=== PATIENT | male | born 1975 | race African-American/Black ===

== ENCOUNTER 2017-12-24 04:47 | Emergency (ER) | payer OTHER ==
[~2017-12-24] VITALS: Ht 175.3 cm; Wt 96.4 kg
[2017-12-24] MEDS ORDERED: AUGMENTIN 500-1 EACH PO (04:58)
[2017-12-24] MEDS ORDERED: FLONASE ALLERG9.9 ML NS (04:59)
[2017-12-24] MEDS ORDERED: DELTASONE20 M1 PO (05:56)
[2017-12-24 06:18] VITALS: BP 144/97
== END 2017-12-24 06:18 | disposition home or self-care (01) ==
LOC: ED 04:47
DX: J01.90 Acute sinusitis, unspecified (principal); R51 Headache; I10 Essential (primary) hypertension; G47.30 Sleep apnea, unspecified
CPT/HCPCS: J1885; J7512